=== PATIENT | female | born 1995 | race Two or more races ===

== ENCOUNTER 2018-09-04 09:37 | Emergency (ER) | payer SELFPAY ==
[2018-09-04 09:43] VITALS: BP 120/74
--- NOTE | 2018-09-04 10:04 | ER Document Report ---
ED Medical Screen (RME) - General Chief Complaint: Headache Stated Complaint: HEADACHE Time Seen by Provider: 09/04/18 09:59 Mode of Arrival: Ambulatory Information source: Patient TRAVEL OUTSIDE OF THE [place] IN LAST 30 DAYS: No - HPI Patient complains to provider of: ?; MARY Onset: Other - pt hasa had "" symptoms for the past several days with bloating, breast soreness, and intermittent MARY. Also irregular period recently - Related Data Allergies/Adverse Reactions: No Known Allergies Allergy (Verified 09/04/18 09:38) Physical Exam - Vital signs Vitals: Temp Pulse Resp BP Pulse Ox 98.0 F 73 12 120/74 100 09/04/18 09:41 09/04/18 09:41 09/04/18 09:41 09/04/18 09:41 09/04/18 09:41 Course - Vital Signs Vital signs: Temp Pulse Resp BP Pulse Ox 98.0 F 73 12 120/74 100 09/04/18 09:41 09/04/18 09:41 09/04/18 09:41 09/04/18 09:41 09/04/18 09:41
[2018-09-04 10:29] LABS: ABSOLUTE EOSINOPHILS # (AUTO) 0.1 10^3/uL (0.0-0.6); ABSOLUTE LYMPHOCYTES (AUTO) 1.4 10^3/uL (0.5-4.7); ABSOLUTE MONOCYTES (AUTO) 0.5 10^3/uL (0.1-1.4); ABSOLUTE NEUT (AUTO) 3.3 10^3/uL (1.7-8.2); BASOPHILS % (AUTO) 0.8 % (0-2); EOSINOPHILS % (AUTO) 1.4 % (0-6); HEMATOCRIT 37.9 % (36.0-47.0); HEMOGLOBIN 13.2 g/dL (12.0-15.5); LYMPHOCYTES % (AUTO) 26.6 % (13-45); MEAN CORPUSCULAR HEMOGLOBIN 30.7 pg (27.0-33.4); MEAN CORPUSCULAR HGB CONC 34.7 g/dL (32.0-36.0); MEAN CORPUSCULAR VOLUME 89 fl (80-97); MONOCYTES % (AUTO) 9.1 % (3-13); PLATELET COUNT 315 10^3/uL (150-450); RED BLOOD COUNT 4.28 10^6/uL (3.72-5.28); RED CELL DISTRIBUTION WIDTH 12.7 % (11.5-14.0); SEGMENTED NEUTROPHILS % (AUTO) 62.1 % (42-78); TOTAL CELLS COUNTED % (AUTO) 100 %; WHITE BLOOD COUNT 5.4 10^3/uL (4.0-10.5)
[2018-09-04 10:34] LABS: APPEARANCE,URINE SLIGHTLY-CLOUDY; BILIRUBIN,URINE NEGATIVE (NEGATIVE); COLOR,URINE YELLOW; GLUCOSE, URINE NEGATIVE (NEGATIVE); KETONES,URINE NEGATIVE (NEGATIVE); LEUKOCYTE ESTERASE,URINE TRACE (NEGATIVE); NITRITE,URINE NEGATIVE (NEGATIVE); PROTEIN,URINE NEGATIVE (NEGATIVE); URINE SPECIFIC GRAVITY 1.021; UROBILINOGEN,URINE NEGATIVE mg/dL (<2.0)
--- NOTE | 2018-09-04 10:42 | ER Document Report ---
ED GI/ - General Chief Complaint: Headache Stated Complaint: HEADACHE Time Seen by Provider: 09/04/18 09:59 Mode of Arrival: Ambulatory Notes: Patient is a 23-year-old female that presents today stating for around 3 weeks she has had some intermittent lower abdominal nonradiating cramping as well as some intermittent headaches. She denies any runny nose, congestion, blurry vision, neck pain, weakness or numbness, fevers, vomiting, or diarrhea. Patient does state that she started to have some vaginal bleeding the last 2 days. She states it was very mild. She is concerned that she possibly is . She did not take a test prior to arrival. She denies any dysuria, vaginal bleeding, or flank pain. TRAVEL OUTSIDE OF THE [place] IN LAST 30 DAYS: No - HPI Patient complains to provider of: Other - See above Onset: Other - See above Timing/Duration: Gradual Quality of pain: Achy Severity at maximum: Mild Severity in ED: None Pain Level: Denies Location: Other - See above Vaginal bleeding (Compared to normal period): None Sexual history: Inactive Associated symptoms: Other - See above Exacerbated by: Denies Relieved by: Denies Similar symptoms previously: No Recently seen / treated by doctor: No - Related Data Allergies/Adverse Reactions: No Known Allergies Allergy (Verified 09/04/18 09:38) Past Medical History - General Information source: Patient - Social History Smoking Status: Former Smoker Frequency of alcohol use: Rare Drug Abuse: Marijuana Family History: Reviewed & Not Pertinent Patient has suicidal ideation: No Patient has homicidal ideation: No Renal/ Medical History: Denies: Hx Peritoneal Dialysis Psychiatric Medical History: Reports: Hx Depression Review of Systems - Review of Systems Constitutional: denies: Fever EENT: denies: Eye discharge, Nose discharge Cardiovascular: denies: Chest pain, Palpitations Respiratory: denies: Short of breath Gastrointestinal: denies: Vomiting Genitourinary: denies: Dysuria Musculoskeletal: denies: Leg swelling Skin: Other - no hives. denies: Rash Neurological/Psychological: Other - no slurred speech -: Yes All other systems reviewed and negative Physical Exam - Vital signs Vitals: Temp Pulse Resp BP Pulse Ox 98.0 F 73 12 120/74 100 09/04/18 09:41 09/04/18 09:41 09/04/18 09:41 09/04/18 09:41 09/04/18 09:41 Notes: Reviewed vital signs and nursing note as charted by RN. CONSTITUTIONAL: Alert and oriented and responds appropriately to questions. Well -appearing; well-nourished HEAD: Normocephalic; atraumatic EYES: PERRL; sclerae non-icteric ENT: Normal nose; no rhinorrhea; moist mucous membranes; pharynx without lesions noted NECK: Supple without meningismus; non-tender CARD: Regular rate and rhythm; no murmurs, symmetric distal pulses RESP: Normal chest excursion without splinting or tachypnea; breath sounds clear and equal bilaterally ABD/GI: Normal bowel sounds; non-distended; soft, currently nontender to deep palpation of all 4 quadrants of the abdomen; no palpable organomegaly or masses BACK: The back appears normal and is non-tender to palpation, there is no CVA tenderness EXT: Normal ROM in all joints; non-tender to palpation; no cyanosis, no effusions, no edema SKIN: Normal color for age and race; warm; dry; good turgor; capillary refill < 2 seconds; no acute lesions noted NEURO: CN II through XII are intact; moves all extremities equally; Motor and sensory function intact PSYCH: The patient's mood and manner are appropriate. Grooming and personal hygiene are appropriate. Course - Re-evaluation Re-evalutation: 09/04/18 10:47 Given the above history and physical examination we will order basic labs, obtain a urinalysis and test, perform a pelvic examination, and reassess the patient's abdomen. Patient currently denies any headaches, has had no neck pain or fevers, has no focal neurological deficits, leading me to believe idiopathic intracranial hypertension, subarachnoid hemorrhage, and acute bacterial meningitis all to be extremely unlikely. 09/04/18 10:55 Pelvic examination shows no external or internal lesions. Minimal blood in the vaginal vault. Cervix is closed. No cervical motion tenderness. Hemoglobin and urine as recorded. Urine analysis shows some white blood cells but the patient endorses no dysuria. Urine culture has been sent. 09/04/18 11:17 Urine analysis as recorded. Wet prep as recorded. Patient denies any dysuria and has no fevers or flank pain. Patient has no tenderness on repeat abdominal examination and still denies a headache and has no focal neurological deficits. Urine culture has been sent. Patient will be discharged home with strict return precautions. - Vital Signs Vital signs: Temp Pulse Resp BP Pulse Ox 98.0 F 73 12 120/74 100 09/04/18 09:41 09/04/18 09:41 09/04/18 09:41 09/04/18 09:41 09/04/18 09:41 - Laboratory Result Diagrams: 09/04/18 10:05 09/04/18 10:05 Laboratory results interpreted by me: 09/04/18 10:05 Urine Blood SMALL H Ur Leukocyte Esterase TRACE H Discharge - Discharge Clinical Impression: Abdominal cramping Headache Qualifiers: Headache type: unspecified Headache chronicity pattern: unspecified pattern Intractability: not intractable Qualified Code(s): R51 - Headache Condition: Good Disposition: HOME, SELF-CARE Additional Instructions: Come back immediately with any return of pain, change in location or quality of pain, return of headaches, blurry vision, weakness or numbness, or any other acute problems. Please follow-up with the FAMILY PRACTICE DOCTOR as we have discussed and please follow-up regarding the urine culture that has been sent.
[2018-09-04 10:53] LABS: ALANINE AMINOTRANSFERASE 22 U/L (9-52); ALBUMIN 4.7 g/dL (3.5-5.0); ALKALINE PHOSPHATASE 75 U/L (38-126); ANION GAP 10 (5-19); ASPARTATE AMINO TRANSFERASE 17 U/L (14-36); BILIRUBIN,DIRECT 0.1 mg/dL (0.0-0.4); BILIRUBIN,TOTAL 0.7 mg/dL (0.2-1.3); BLOOD UREA NITROGEN 9 mg/dL (7-20); CALCIUM 10.1 mg/dL (8.4-10.2); CARBON DIOXIDE 26 mmol/L (22-30); CHLORIDE 105 mmol/L (98-107); GLUCOSE 92 mg/dL (75-110); POTASSIUM 4.3 mmol/L (3.6-5.0); TOTAL PROTEIN 8.2 g/dL (6.3-8.2)
[2018-09-04 11:03] LABS: BACTERIA (WET MOUNT) 3+ BACTERIA SEEN; EPITHELIALS (WET MOUNT) 4+ EPITHELIALS SEEN; RBCS (WET MOUNT) 1+ RBCS SEEN; T.VAGINALIS (WET MOUNT) NO TRICHOMONAS SEEN; WBCS (WET MOUNT) 3+ WBCS SEEN; YEAST (WET MOUNT) NO YEAST SEEN
[2018-09-04 12:31] LABS: CHLAM PCR NOT DETECTED (NOT DETECT); GON PCR NOT DETECTED (NOT DETECT)
== END 2018-09-04 11:33 | disposition home or self-care (01) ==
LOC: ER 09:37
DX: R51 Headache (principal); R10.30 Lower abdominal pain, unspecified
CPT/HCPCS: 36415; 80053; 81001; 81025; 85025; 87086; 87088; 87210; 87491; 87591; 99284